=== PATIENT | male | born 1975 | race Caucasian/White ===

== ENCOUNTER 2020-03-22 22:56 | Emergency (ER) | payer OTHER ==
[~2020-03-22] VITALS: Ht 180.3 cm; Wt 115.2 kg
[~2020-03-22 22:56] MED LIST: ASPIR 8181 MG PO; ATORVASTATIN CA40 MG PO; CARVEDILOL12.5 MG PO; CENTRUM COMPLE1 EACH PO; CENTRUM SILVER1 EAC2 PO; CIPROFLOXACIN500 M1 PO; COZAAR 50 MG TA50 M2 PO; COZAAR100 MG PO; FLAGYL500 MG PO; LEVAQUIN 500 M500 M2 PO; LISINOPRIL10 MG PO; MECLIZINE HCL25 M1 PO; METFORMIN HCL500 MG PO; NOHOMEMEDICATIONS; NORVASC5 MG PO; VASCEPA1 GM PO; VITAMIN D2000 UNIT PO
[2020-03-23 00:58] VITALS: BP 141/70
== END 2020-03-23 00:58 | disposition home or self-care (01) ==
LOC: M.ERS 22:56
DX: S02.2XXA Fracture of nasal bones, initial encounter for closed fracture (principal); I10 Essential (primary) hypertension; E11.9 Type 2 diabetes mellitus without complications; Z88.6 Allergy status to analgesic agent; Y04.0XXA Assault by unarmed brawl or fight, initial encounter; Y93.89 Activity, other specified; Y92.89 Other specified places as the place of occurrence of the external cause; Y99.8 Other external cause status